=== PATIENT | female | born 1955 | race Two or more races ===

== ENCOUNTER 2020-10-10 19:55 | Emergency (ER) | payer OTHER ==
[~2020-10-10] VITALS: Ht 149.9 cm; Wt 74.4 kg
[2020-10-10 20:15] VITALS: BP 155/89
--- NOTE | 2020-10-10 20:15 | NUR ---
ED Nurse Note: Patient walked in from home c/o headache and right shoulder & right sided stomach pain 7/10 after a fall. Patient aao x 4 and ambulatory. Patient changed into gown, no acute distress noted during assessment, VSS.
--- NOTE | 2020-10-10 20:24 | Emergency Room Report ---
History of Present Illness General Chief Complaint: Multiple Trauma/Fall Source: Patient Present Illness HPI Disclaimer: Please note that this report is being documented using DRAGON technology. This can lead to erroneous entry secondary to incorrect interpretation by the dictating instrument. HPI: 65-year-old female with no reported medical history presents for evaluation of headache and shoulder pain after a fall. 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 She fell onto her right side striking her head against the tile floor. Did not lose consciousness but felt dizzy after the injury. She reports a worsening throbbing pain over the right side of the head. Denies bleeding. Denies seizure activity after injury, she does not take blood thinners. She also reporting some right shoulder pain which she describes as soreness but has full range of motion denies numbness, tingling or other injury. Ambulating with a steady gait otherwise. 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 There are no scalp or face hematomas, lacerations or abrasions. Tenderness palpation over the parietal scalp. No tenderness in the facial bones. EOMI. PERRLA. No septal hematoma. No oral lacerations. Dentition is intact. No malocclusion Neck: Supple, trachea midline. Arrives without cervical collar Chest Wall: No tenderness, no deformity, no crepitus CV: RRR. S1 and S2 normal. No murmur appreciated Resp: Normal work of breathing. No cough, wheezing or crackles appreciated Abd: Soft, nontender, nondistended Skin: Intact. No abrasions, laceration or rash over the exposed skin MSK: Normal tone and bulk. No obvious deformity. Moving all extremities. Ambulating without difficulty. Neuro: Awake and alert. Mentating appropriately. Sensation is intact to light touch over the dermatomes of the upper and lower extremities Spine: There is no tenderness, step-off or deformity in the cervical, thoracic or lumbosacral spine. Medical Decision Making Diagnostic Impression: Primary Impression: Closed head injury Additional Impression: Shoulder contusion ER Course 65-year-old female presents for evaluation of head injury persistent headache after a fall from standing approximately 5 hours ago. Overall the patient is well-appearing however given her age CT scan was ordered. No intracranial injury identified. No other injury identified. Patient is well-appearing ambulating with a steady gait and has no other complaints. Stable for outpati ent follow-up. Instructed to return with new or worsening symptoms. CT/MRI/US Diagnostic Results CT/MRI/US Diagnostic Results : Impression rocedure: CT Head no Contrast EXAM: CT Head Without Intravenous Contrast CLINICAL HISTORY: INJ TECHNIQUE: Axial computed tomography images of the head/brain without intravenous contrast. CTDI is 53.4 mGy and DLP is 939.3 mGy-cm. One or more of the following dose reduction techniques were used: automated exposure control, adjustment of the mA and/or kV according to patient size, use of iterative reconstruction technique. COMPARISON: No relevant prior studies available. FINDINGS: Brain: Unremarkable. No hemorrhage. No significant white matter disease. No edema. Ventricles: Unremarkable. No ventriculomegaly. Bones/joints: Unremarkable. No acute fracture. Soft tissues: Unremarkable. Sinuses: Unremarkable as visualized. No acute sinusitis. Mastoid air cells: Unremarkable as visualized. No mastoid effusion. IMPRESSION: No acute intracranial abnormality. Dictated By: Huber Higginbotham M.D. Electronically Signed By:Huber Higginbotham M.D. Signed Date/Time 10/10/202045 Last Vital Signs Date Time Temp Pulse Resp B/P (MAP) Pulse Ox O2 Delivery O2 Flow Rate FiO2 10/10/20 20:06 97.2 75 18 184/91 (122) 94 Room Air Disposition: HOME, SELF-CARE Condition: Stable Scripts Acetaminophen* (TYLENOL EXTRA STRENGTH*) 500 Mg Tablet 500 MG ORAL Q8H PRN for Prn Headache/Temp > 101, #30 TAB 0 Refills Prov: Joshua Lugo MD 10/10/20 Joshua Lugo MD Oct 10, 2020 20:24
[2020-10-10] MEDS ORDERED: TYLENOL EXTRA500 MG ORAL (20:25)
[2020-10-10] MEDS ORDERED: Acetaminophen 500mg (ES) tab ORAL ONE (20:30)
--- NOTE | 2020-10-10 20:31 | NUR ---
ED Nurse Note: Pt taken to CT
--- NOTE | 2020-10-10 20:44 | NUR ---
ED Nurse Note:DAUGHTER MICHAEL [phone]
--- NOTE | 2020-10-10 20:47 | Diagnostic Imaging Report ---
EXAM: CT Head Without Intravenous Contrast CLINICAL HISTORY: INJ TECHNIQUE: Axial computed tomography images of the head/brain without intravenous contrast. CTDI is 53.4 mGy and DLP is 939.3 mGy-cm. One or more of the following dose reduction techniques were used: automated exposure control, adjustment of the mA and/or kV according to patient size, use of iterative reconstruction technique. COMPARISON: No relevant prior studies available. FINDINGS: Brain: Unremarkable. No hemorrhage. No significant white matter disease. No edema. Ventricles: Unremarkable. No ventriculomegaly. Bones/joints: Unremarkable. No acute fracture. Soft tissues: Unremarkable. Sinuses: Unremarkable as visualized. No acute sinusitis. Mastoid air cells: Unremarkable as visualized. No mastoid effusion. IMPRESSION: No acute intracranial abnormality.
[2020-10-10 21:00] VITALS: BP 149/95
--- NOTE | 2020-10-10 21:00 | NUR ---
ER DISCHARGE NOTE: Patient is cleared to be discharged per ERMD, pt is aox4, on room air, with stable vital signs. pt was given dc and prescription instructions, pt was able to verbalize understanding, pt id band removed. pt is able to ambulate with steady gait. pt took all belongings. pt stable upon discharge.
== END 2020-10-10 21:00 | disposition home or self-care (01) ==
LOC: EMR 20:20
DX: S09.90XA Unspecified injury of head, initial encounter (principal); S40.011A Contusion of right shoulder, initial encounter; R73.03 Prediabetes; Z88.0 Allergy status to penicillin; W01.0XXA Fall on same level from slipping, tripping and stumbling without subsequent striking against object, initial encounter; Y99.0 Civilian activity done for income or pay
CPT/HCPCS: 70450; 99284